=== PATIENT | female | born 1955 | race Caucasian/White ===

== ENCOUNTER → 2022-02-13 | Emergency (ER) | payer OTHER ==
[~2022-02-13] VITALS: Ht 162.6 cm; Wt 61.2 kg
[~2022-02-13] MED LIST: ATORVASTATIN CA10 MG PO; GLIMEPIRIDE4 MG; GLIMEPIRIDE4 MG PO; JANUMET 50-1,1 UDTAB; JANUMET 50-1,1 UDTAB PO; LIPITOR20 MG; LIPITOR20 MG PO
== END | disposition left against medical advice (07) ==
LOC: ER 22:42
DX: Z53.21 Procedure and treatment not carried out due to patient leaving prior to being seen by health care provider (principal)